=== PATIENT | male | born 1995 | race Caucasian/White ===

== ENCOUNTER → 2017-02-05 | Outpatient (CLI) | payer OTHER ==
--- NOTE | 2017-02-05 15:31 | MRI ---
HISTORY: Headache with vomiting for weeks Study: MRI of the brain done without and with IV contrast Comparison: No priors Technique: Multiplanar multi-sequence MRI of the brain was obtained utilizing standard departmental protocol. Sagittal and axial T1 weighted images were obtained. Axial T2 and flair weighted images were performed as well. Axial diffusion weighted and ADC trace mapping was performed. T1 axial and coronal sequences were performed following IV gadolinium containing contrast materials. Findings: The midline structures appear unremarkable. The evaluation of the brain parenchyma demonstrates no abnormal signal characteristics to suggest intraparenchymal mass or hemorrhage. No extra-axial flui d collections are observed. The ventricular system appears symmetric and nondilated. The CP angle is normal in its appearance without brainstem mass or evidence for acoustic neuroma. The flow void s on both T1 and T2 weighted imaging appear unremarkable. Evaluation of the diffusion weighted imag ing does not demonstrate abnormal signal characteristics to suggest acute ischemic change. The extr acranial structures are unremarkable. There are no unusual enhancing lesions seen within the brain or cerebellum or brainstem. IMPRESSION: 1. Unremarkable MRI of the brain without and with IV contrast. Reported By:
== END ==
LOC: RAD 14:27
PROVIDERS: ATTEND Pediatrics
DX: R51 Headache (principal); R11.0 Nausea
CPT/HCPCS: 70553